=== PATIENT | female | born 1965 | race Caucasian/White ===

== ENCOUNTER → 2017-01-03 | Outpatient (CLI) | payer OTHER ==
[~2017-01-03] VITALS: Ht 170.2 cm; Wt 124.1 kg
[~2017-01-03] MED LIST: IMITREX100 MG PO; MULTIPLE VITAMI1 CAP PO; PROZAC 20MG20 MG PO; VITAMIN D 1001000 IU PO; ZESTRIL 10MG10 MG PO
[2017-01-03 13:57] VITALS: BP 130/63; PULSE 79
== END ==
LOC: LIGHT 13:20 → EDSEX 13:20 → LIGHT 14:16
DX: E66.01 Morbid (severe) obesity due to excess calories (principal); Z68.41 Body mass index [BMI] 40.0-44.9, adult; Z71.3 Dietary counseling and surveillance; F32.89 Other specified depressive episodes

== ENCOUNTER 2017-01-28 08:37 | Inpatient (IN) | payer OTHER ==
[~2017-01-28] VITALS: Ht 172.7 cm; Wt 121.1 kg
[2017-02-02] VITALS (10 sets, daily range): BP systolic 97–126; BP diastolic 45–70; PULSE 71–80; TEMP 97.6–98.3
[2017-02-03 02:08] VITALS: BP 133/77; PULSE 93; TEMP 98.5
[2017-02-03 05:06] VITALS: BP 148/91; PULSE 98; TEMP 98.5
[2017-02-03 09:44] VITALS: BP 146/91; PULSE 91; TEMP 98.5
[2017-02-03 14:02] VITALS: BP 132/75; PULSE 80; TEMP 98.2
== END 2017-02-03 18:52 | disposition home or self-care (01) | DRG 621 ==
LOC: INPTSU 02-02 10:27 → SURG 02-02 10:27 → EDSEX 02-02 15:00 → SURG 02-02 16:03
PROVIDERS: Surgery
PROC: 0DB64Z3 Excision of Stomach, Percutaneous Endoscopic Approach, Vertical (ICD-10-PCS; principal; 2017-02-02 12:30)
DX: E66.01 Morbid (severe) obesity due to excess calories (principal); Z68.41 Body mass index [BMI] 40.0-44.9, adult
CPT/HCPCS: A9284; J0690; J1100; J1170; J2405; J2550; J2704; J3010; J7042; J7120

== ENCOUNTER → 2017-02-01 | Outpatient (CLI) | payer OTHER ==
[~2017-02-01] VITALS: Ht 170.2 cm; Wt 121.3 kg
[2017-02-01 11:36] VITALS: BP 104/64; PULSE 68
== END ==
LOC: LIGHT → EDSEX → LIGHT 10:15
DX: E66.01 Morbid (severe) obesity due to excess calories (principal); Z68.41 Body mass index [BMI] 40.0-44.9, adult; Z71.3 Dietary counseling and surveillance

== ENCOUNTER → 2017-02-14 | Outpatient (CLI) | payer OTHER ==
[~2017-02-14] VITALS: Ht 171.4 cm; Wt 117.0 kg
[2017-02-14 17:06] VITALS: BP 98/72
== END ==
LOC: LIGHT 15:37
DX: E66.01 Morbid (severe) obesity due to excess calories (principal); Z68.39 Body mass index [BMI] 39.0-39.9, adult; Z71.3 Dietary counseling and surveillance; F32.89 Other specified depressive episodes

== ENCOUNTER → 2017-03-28 | Outpatient (CLI) | payer OTHER ==
[~2017-03-28] VITALS: Ht 171.4 cm; Wt 110.9 kg
[2017-03-28 16:59] VITALS: BP 106/80; PULSE 72
== END ==
LOC: LIGHT 11:01
DX: E66.01 Morbid (severe) obesity due to excess calories (principal); Z68.37 Body mass index [BMI] 37.0-37.9, adult; Z71.3 Dietary counseling and surveillance; F32.89 Other specified depressive episodes

== ENCOUNTER → 2017-10-10 | Outpatient (CLI) | payer OTHER ==
[~2017-10-10] VITALS: Ht 171.4 cm; Wt 94.3 kg
[2017-10-10 15:29] VITALS: BP 112/70; PULSE 72
== END ==
LOC: LIGHT 05-23 08:29
DX: E66.01 Morbid (severe) obesity due to excess calories (principal); Z68.32 Body mass index [BMI] 32.0-32.9, adult; Z71.3 Dietary counseling and surveillance; F32.89 Other specified depressive episodes; Z98.84 Bariatric surgery status
CPT/HCPCS: G0463

== ENCOUNTER → 2018-02-13 | Outpatient (CLI) | payer OTHER ==
[~2018-02-13] VITALS: Ht 171.4 cm; Wt 88.7 kg
[~2018-02-13] MED LIST changes: +CALCIUM CITRATE1 TA4 PO; +HARD NAILS 2.51 CAP PO; +VTAMINC250TA PO
[2018-02-13 17:20] VITALS: BP 110/70; PULSE 91
== END ==
LOC: LIGHT 14:22
DX: F32.9 Major depressive disorder, single episode, unspecified (principal); E66.01 Morbid (severe) obesity due to excess calories; Z68.30 Body mass index [BMI] 30.0-30.9, adult; Z71.3 Dietary counseling and surveillance
CPT/HCPCS: G0463